=== PATIENT | female | born 1980 | race Caucasian/White ===

== ENCOUNTER 2023-09-09 10:32 | Outpatient (CLI) | payer OTHER, SELFPAY | END 2023-09-09 10:33 | disposition home or self-care (01) | PROVIDERS: PCP Family Medicine; Visit Provider Obstetrics & Gynecology | DX: N92.6 Irregular menstruation, unspecified (principal) | CPT/HCPCS: 82627; 82670; 83001; 84146; 84403; 84443; 84450; 84460 ==

== ENCOUNTER 2025-02-17 11:04 | Outpatient (CLI) | payer OTHER, SELFPAY ==
--- NOTE | 2025-02-17 11:15 | CRLHL7_ITS ---
For Patients: As a result of the Century Cures Act, medical imaging exams and procedure reports are released immediately into your electronic medical record. You may view this report before your referring provider. If you have questions, please contact your health care provider. INDICATION: Irregular menses COMPARISON: 02/04/2014 TECHNIQUE: 2D armas-scale and color Doppler images were acquired of the pelvis using a transabdominal and transvaginal approach. Transvaginal imaging performed to better visualize the endometrial stripe and ovaries. FINDINGS: Sonographic images demonstrate a normal size and smooth outer contour of the uterus. Uterus measures 7.7 cm in length by 0.4 cm in AP diameter by 3.8 cm in transverse dimension. The myometrium has a normal uniform echotexture. The endometrial lining measures 4.1 mm in composite thickness. Echogenic focus within the endometrium measures 8 x 2 x 5 millimeters. The right ovary measures 2.3 x 0.9 x 1.6 cm in size and the left ovary measures 2.6 x 0.9 x 1.7 cm. The ovaries demonstrate normal arterial and venous blood flow on color Doppler analysis. There are no suspicious fluid collections within the cul-de-sac. IMPRESSION: Endometrial thickness 4.1 millimeters with possible polyp measuring 8 millimeters. Dictated by Francisco Gerber MD @ 02/17/2025 5:43:17 PM (Electronically Signed)
== END 2025-02-17 11:05 | disposition home or self-care (01) ==
LOC: US 11:05
PROVIDERS: PCP Family Medicine; Visit Provider Registered Nurse
DX: N92.6 Irregular menstruation, unspecified (principal); R93.89 Abnormal findings on diagnostic imaging of other specified body structures
CPT/HCPCS: 76830; 76856

== ENCOUNTER 2025-03-30 07:30 | Day surgery (SDC) | payer OTHER, SELFPAY ==
[2025-03-30] VITALS (7 sets, daily range): BP systolic 121–154; BP diastolic 74–97; PULSE 50–71; RESP 14–16; TEMP 36.6–36.8; O2SAT 99–100; BMI 19.6
[2025-03-30] MEDS: LACTATED RINGERS 1000 ML 1,000 ML 100 ML IV (07:40)
[2025-03-30] MEDS: SODIUM CHLORIDE 0.9 % (FLUSH) 10 ML SYRINGE IVF (08:12)
--- NOTE | 2025-03-30 09:14 | W.PM.H&PU ---
History & Physical Update History & Physical Update H&P Reviewed and patient assessed: No changes noted H&P Updates: Nicole is a 44-year-old P0 seen in pre-op prior to planned hysteroscopy, dilation curettage and Mirena IUD insertion. No interval change to her health history or questions today. We again reviewed the risks, benefits and alternatives to the planned procedure. Written consent was re-signed. Post-procedure restrictions and expectations reviewed. Pre-op labs are pending. No perioperative antibiotics indicated.
--- NOTE | 2025-03-30 09:26 | P.GYNPRC_ITS ---
Procedure Note Date of procedure: 03/30/25 Will [facility] bill your pro fee for this procedure?: Yes Pre-op diagnosis: Abnormal uterine bleeding Perimenopause on HRT Suspected endometrial polyps Procedure: Hysteroscopy, dilation and curettage (Truclear), Mirena IUD insertion Anesthesia: MAC and local Complications: None Surgeon: Ling Salas MD Estimated blood loss (mL): 10 IV fluids (mL): 750 Urine Output (mL): 50 Pathology: specimen obtained, sent to pathology Condition: stable Disposition: same day Findings: External genital exam within normal limits Endometrial cavity appears slightly hyperemic, proliferative Two small suspected endometrial polyps noted - posterior lower uterine segment, left posterolateral - both approximately 5mm in size Procedure Description: Procedure in detail: Patient was taken to the operating room with IV running. She was positioned in dorsal lithotomy position with her legs fully supported in Yellofin stirrups. Monitored anesthesia care was administered. She was prepped and draped in the usual sterile fashion. Exam under anesthesia was performed for the above-noted findings. In/out catherization performed. Speculum was inserted. Cervix visualized and grasped along the anterior lip with a single-tooth tenaculum. Paracervical block was performed in the usual fashion was 0.5% bupivacaine, total 20 mL. Cervix was serially dilated to accommodate the TRUCLEAR hysteroscope. This was assembled with saline inflow and outflow in place. The line was flushed of bubbles. The hysteroscope was advanced through the cervix into the endometrial cavity for the above noted findings. The tissue morcellator was then inserted through the operating channel. Window lock was performed. Under direct visualization, the 2 small suspected polyps were 1st resected in their entirety. The endometrial cavity was then circumferentially curetted with the tissue morcellator. The hysteroscope and morcellator were then removed from the uterus. Uterus sounds to 7.5cm. The IUD was loaded into the insertion tube, inserted to the sounded depth, and the IUD is deployed. Insertion tube was removed. Hysteroscopy was performed, ensuring proper fundal intrauterine positioning of the IUD. Hysteroscope removed, tenaculum removed. Strings trimmed to 3cm. Hemostasis was noted. Patient tolerated procedure well. She was taken to recovery area in stable condition. Surgical to brief completed - specimen is endometrial curettings for pathology. EBL 10 mL, urine output 50 mL, fluid deficit 60 mL.
[2025-03-30 09:34] LABS: Ur HCG Qualitative* Negative (Negative)
[2025-03-30 09:35] LABS: Hemoglobin* 13.9 gm/dL (12.0-16.0)
[2025-03-30] MEDS: BUPIVACAINE 0.5% 30 ML INJECTION (10:09)
--- NOTE | 2025-03-30 10:38 | P.ANES_ITS ---
Anesthesia Charges Start Date/Time Anesthesia Start Date: 03/30/25 Anesthesia Start Time: 09:50 Stop Date/Time Anesthesia Stop Date: 03/30/25 Anesthesia Stop Time: 10:38 Coding CPT Codes CPT Codes: ANESTH HYSTEROSCOPE/GRAPH - 54859 ([id number]) P2 - PATIENT W/MILD SYST DISEASE, QK - CORPORATE DEVELOPMENT ASSOCIATE 2-4 CNCRNT ANES PROC, QX - COOLER MAN SVC W/ MD MED DIRECTION
--- NOTE | 2025-03-30 10:38 | W.ANESCHARGE ---
Anesthesia Charges Start Date/Time Anesthesia Start Date: 03/30/25 Anesthesia Start Time: 09:50 Stop Date/Time Anesthesia Stop Date: 03/30/25 Anesthesia Stop Time: 10:38 Coding CPT Codes CPT Codes: ANESTH HYSTEROSCOPE/GRAPH - 88661 ([id number]) P2 - PATIENT W/MILD SYST DISEASE, QK - GAME OPERATOR 2-4 CNCRNT ANES PROC, QX - ADVANCE SEAL DELIVERY SYSTEM MAINTAINER SVC W/ MD MED DIRECTION
--- NOTE | 2025-03-30 12:20 | P.ANES_ITS ---
Anesthesia Charges Start Date/Time Anesthesia Start Date: 03/30/25 Anesthesia Start Time: 09:50 Stop Date/Time Anesthesia Stop Date: 03/30/25 Anesthesia Stop Time: 10:38 Coding CPT Codes CPT Codes: ANESTH HYSTEROSCOPE/GRAPH - 66683 ([id number]) P2 - PATIENT W/MILD SYST DISEASE, QK - MANAGER OF INTERNAL 2-4 CNCRNT ANES PROC, QX - SOFTWARE DESIGN MANAGER SVC W/ MD MED DIRECTION
--- NOTE | 2025-03-30 12:20 | W.ANESCHARGE ---
Anesthesia Charges Start Date/Time Anesthesia Start Date: 03/30/25 Anesthesia Start Time: 09:50 Stop Date/Time Anesthesia Stop Date: 03/30/25 Anesthesia Stop Time: 10:38 Coding CPT Codes CPT Codes: ANESTH HYSTEROSCOPE/GRAPH - 22291 ([id number]) P2 - PATIENT W/MILD SYST DISEASE, QK - IMAGE PROCESSING ENGINEER 2-4 CNCRNT ANES PROC, QX - MANAGER SUPPLIER SVC W/ MD MED DIRECTION
== END 2025-03-30 12:05 | disposition home or self-care (01) ==
PROVIDERS: PCP Family Medicine; Visit Provider Obstetrics & Gynecology
PROC: 0UDB8ZZ Extraction of Endometrium, Via Natural or Artificial Opening Endoscopic (ICD-10-PCS; CPT 58558; principal; 2025-03-30 09:00)
DX: N93.8 Other specified abnormal uterine and vaginal bleeding (principal); N95.1 Menopausal and female climacteric states; Z79.890 Hormone replacement therapy; N84.0 Polyp of corpus uteri; R23.2 Flushing
CPT/HCPCS: 58558; 58300; 00952; 36415; 81025; 85018; 86850; 86900; 86901; 88305; C1782; J0665; J1100; J1885; J2250; J2371; J2405; J2704; J3010; J7120; J7298